=== PATIENT | male | born 1940 | race Caucasian/White ===

== ENCOUNTER → 2018-06-09 | Outpatient (CLI) | payer MEDICARE ==
[~2018-06-09] MED LIST: ALFU10 PO; FINA5 PO
== END | disposition home or self-care (01) ==
LOC: PLD 08:18 → LAB SHORT 08:18
DX: C44.310 Basal cell carcinoma of skin of unspecified parts of face (principal)
CPT/HCPCS: 88305

== ENCOUNTER → 2019-07-19 | Outpatient (CLI) | payer MEDICARE | END | disposition home or self-care (01) | LOC: LAB SHORT 13:32 → LAB 13:32 | DX: N39.0 Urinary tract infection, site not specified (principal) | CPT/HCPCS: 87086 ==

== ENCOUNTER 2019-12-06 09:41 | Emergency (ER) | payer MEDICARE, OTHER ==
[~2019-12-06] VITALS: Ht 167.6 cm; Wt 67.9 kg
[2019-12-06 10:36] LABS: BASOPHILS ABSOLUTE AUTO 0.06 K/mm3 (0.00-0.23); BASOPHILS PERCENT AUTO 1 % (0-2); EOSINOPHILS ABSOLUTE AUTO 0.05 K/mm3 (0.00-0.68); EOSINOPHILS PERCENT AUTO 1 % (0-6); Hematocrit 42.7 % (37.0-53.0); Hemoglobin 14.1 g/dL (13.5-17.5); IMMATURE GRAN ABSOLUTE AUTO 0.01 K/mm3 (0.00-0.10); IMMATURE GRAN PERCENT AUTO 0 % (0-1); LYMPHOCYTES ABSOLUTE AUTO 1.15 K/mm3 (0.84-5.20); LYMPHOCYTES PERCENT AUTO 19 % (21-46); MONOCYTES PERCENT AUTO 7 % (4-13); Mean Corpuscular HGB 29.9 pg (26.0-34.0); Mean Corpuscular Volume 91 fL (80-100); Mean Platelet Volume 9.5 fL (9.1-12.4); NEUTROPHILS PERCENT AUTO 73 % (41-73); Platelet Count 241 K/mm3 (150-400); RDW Coefficient Variation 12.6 % (11.7-14.2); RDW Standard Deviation 42.2 fL (35.1-46.3); Red Blood Cell Count 4.71 M/mm3 (4.30-5.90); White Blood Cell Count 6.17 K/mm3 (4.00-11.30)
[2019-12-06 10:49] LABS: Alanine Aminotransfer (ALT/SGP 19 U/L (12-78); Albumin, Blood 3.8 g/dL (3.4-5.0); Alk Phos 76 U/L (50-136); Anion Gap 4 mmol/L (6-16); Aspartate Aminotrans (AST/SGOT 23 U/L (12-37); Bilirubin, Total 0.9 mg/dL (0.1-1.0); Blood Urea Nitrogen 30 mg/dL (8-24); CO2, Blood 26 mmol/L (21-32); Calcium, Blood 8.9 mg/dL (8.5-10.1); Chloride, Blood 109 mmol/L (98-108); Globulin, Blood 3.7 g/dL (2.2-4.0); Glomerular Filtration Rate >60 (60-); Glucose, Blood 89 mg/dL (70-99); Sodium, Blood 139 mmol/L (136-145); Total Protein, Blood 7.5 g/dL (6.4-8.2); Troponin I <0.015 ng/mL (0.000-0.040)
== END 2019-12-06 12:18 | disposition home or self-care (01) ==
LOC: ER 09:41
PROVIDERS: Emergency Medicine
DX: R07.89 Other chest pain (principal); Z87.891 Personal history of nicotine dependence
CPT/HCPCS: 36415; 71045; 80053; 84443; 84484; 85025; 93005; 93010; 99285-25

== ENCOUNTER 2021-04-06 00:49 | Day surgery (SDC) | payer MEDICARE, OTHER ==
[~2021-04-06 00:49] MED LIST changes: +AMLO5 PO; +FERSU300 PO; +VITAMIN D310 MC4 PO
== END 2021-04-06 15:00 | disposition home or self-care (01) ==
LOC: ATC 00:49
DX: Z45.2 Encounter for adjustment and management of vascular access device (principal); C85.89 Other specified types of non-Hodgkin lymphoma, extranodal and solid organ sites; Z88.8 Allergy status to other drugs, medicaments and biological substances; Z92.21 Personal history of antineoplastic chemotherapy
CPT/HCPCS: 96523; J1642

== ENCOUNTER 2021-05-07 00:17 | Day surgery (SDC) | payer MEDICARE, OTHER | END 2021-05-07 14:57 | disposition home or self-care (01) | LOC: ATC 00:17 | DX: Z45.2 Encounter for adjustment and management of vascular access device (principal); C85.89 Other specified types of non-Hodgkin lymphoma, extranodal and solid organ sites; Z79.899 Other long term (current) drug therapy | CPT/HCPCS: 96523; J1642 ==

== ENCOUNTER 2021-07-07 02:11 | Day surgery (SDC) | payer MEDICARE, OTHER | END 2021-07-07 14:03 | disposition home or self-care (01) | LOC: ATC 02:11 | DX: C85.89 Other specified types of non-Hodgkin lymphoma, extranodal and solid organ sites (principal); Z88.8 Allergy status to other drugs, medicaments and biological substances | CPT/HCPCS: 96523; J1642 ==

== ENCOUNTER 2021-08-02 01:00 | Day surgery (SDC) | payer MEDICARE, OTHER | END 2021-08-02 15:00 | disposition home or self-care (01) | LOC: ATC 01:00 | DX: C85.89 Other specified types of non-Hodgkin lymphoma, extranodal and solid organ sites (principal); Z88.8 Allergy status to other drugs, medicaments and biological substances | CPT/HCPCS: 96523; J1642 ==